=== PATIENT | male | born 1995 | race Caucasian/White ===

== ENCOUNTER → 2017-04-15 | Outpatient (CLI) | payer BC ==
[2017-04-15 16:26] LABS: BASO % 0.4 %; BASO ABS # 0.03 K/uL (0-0.2); EOS % 2.5 %; EOS ABS # 0.17 K/uL (0-0.5); HEMATOCRIT 46.7 % (42-52); HEMOGLOBIN 15.9 g/dL (14.0-18.0); IG# 0.01 K/uL (0.00-0.02); LYMPH % 24.6 %; MEAN CELL VOLUME 91.4 fL (80-100); MEAN CORPUSCULAR HEMOGLOBIN 31.1 pg (25-34); MEAN PLATELET VOLUME 10.1 fL (7.4-10.4); MONO % 9.6 %; MONO ABS # 0.66 K/uL (0.11-0.59); NEUT % 62.8 %; NEUT ABS # 4.34 K/uL (1.4-6.5); PLATELET COUNT 331 K/uL (130-400); RED CELL DISTRIBUTION WIDTH CV 13.2 % (11.5-14.5); RED CELL DISTRIBUTION WIDTH SD 44.4 fL (36.4-46.3); WHITE BLOOD COUNT 6.91 K/uL (4.8-10.8)
[2017-04-15 16:49] LABS: ALBUMIN 4.2 gm/dl (3.4-5.0); ALT/SGPT 17 U/L (12-78); AST/SGOT 15 U/L (15-37); BLOOD UREA NITROGEN 12 mg/dl (7-18); CALCIUM 9.3 mg/dl (8.5-10.1); CARBON DIOXIDE 29 mmol/L (21-32); CREATININE 0.84 mg/dl (0.60-1.40); GLUCOSE 79 mg/dl (70-99); SODIUM 137 mmol/L (136-145)
[2017-04-15 16:52] LABS: ALKALINE PHOSPHATASE 68 U/L (45-117); TOTAL PROTEIN 7.8 gm/dl (6.4-8.2)
== END | disposition home or self-care (01) ==
LOC: C.LAB1850 15:25
PROVIDERS: ATTEND Urology
DX: M13.0 Polyarthritis, unspecified (principal)

== ENCOUNTER 2017-05-11 07:30 | Emergency (ER) | payer BC ==
[~2017-05-11] VITALS: Ht 170.2 cm; Wt 72.1 kg
[2017-05-11 07:35] VITALS: TEMP 36.6; Ht 170.2 cm; Wt 72.1 kg
--- NOTE | 2017-05-11 08:21 | DIAGNOSTIC IMAGING REPORT ---
L SHOULDER MIN 2 VIEWS ROUTINE CLINICAL HISTORY: fall last PM; L shoulder pain at AC joint COMPARISON: None FINDINGS: Alignment of the left glenohumeral joint is anatomic. No acute fracture. There is suggestion of minimal elevation of the distal left clavicle with respect to the acromion. There may be slight widening of the AC joint interval. IMPRESSION: 1. No acute fracture. Anatomic alignment of the left glenohumeral joint. 2. Possible slight elevation of the distal left clavicle with borderline widening of the AC joint interval. This could reflect a grade I/II AC joint separation. Electronically signed by: Eron Delgado M.D. 05/11/2017 8:19 AM Dictated Date/Time: 05/11/2017 8:16 AM
[2017-05-11 09:28] VITALS: BP 126/87; PULSE 91; O2SAT 100
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
== END 2017-05-11 09:29 | disposition home or self-care (01) ==
LOC: C.EDB 07:31 → C.EDA 09:29
DX: S43.102A Unspecified dislocation of left acromioclavicular joint, initial encounter (principal); W50.0XXA Accidental hit or strike by another person, initial encounter; Y92.9 Unspecified place or not applicable; R55 Syncope and collapse; F10.10 Alcohol abuse, uncomplicated